=== PATIENT | female | born 1990 | race Caucasian/White ===

== ENCOUNTER → 2017-12-01 08:35 | Outpatient (CLI) | payer MEDICARE, MEDICAID, SELFPAY | PROVIDERS: Visit Provider Specialist | DX: Z91.038 Other insect allergy status (principal) | CPT/HCPCS: 36415; 86003 ==

== ENCOUNTER → 2019-07-25 09:21 | Outpatient (CLI) | payer MEDICARE, MEDICAID, SELFPAY ==
[2019-07-25 12:25] LABS: Absolute Lymphocyte Count 2.15 X10^3/uL (0.83-4.51); Basophil# 0.05 X10^3/uL; Basophil% 0.9 % (0-1); Eosinophil# 0.11 X10^3/uL; Eosinophils% 1.9 % (0-5); Hematocrit 41.6 % (37-47); Hemoglobin 13.4 g/dL (12.0-15.0); Lymphocyte # 2.15 X10^3/ul (4.0); Mean Corp Hgb Conc 32.2 g/dL (32-36); Mean Corpuscular Hgb 27.3 pg (27.0-32.0); Mean Corpuscular Volume 84.9 fL (81-99); Mean Platelet Vol. 10.4 fl (6.2-12.0); Monocyte# 0.38 X10^3/uL; Monocyte% 6.7 % (0-10); NRBC Flagged by Analyzer 0 % (0-5); Neutrophil # 2.95 X10^3/uL (2.7-7.7); Neutrophil % 52.1 % (47-70); Platelet Count 282 K/mm3 (150-450); RBC Distribution Width CV 12.5 % (11.6-14.6); RBC Distribution Width SD 38.5 fl (35.1-43.9); White Blood Count 5.7 K/mm3 (4.4-11.0)
[2019-07-25 13:15] LABS: ALB/GLOB Ratio 1.1 RATIO (0.9-2.4); AST(SGOT) 26 U/L (15-37); Alanine Aminotransfer ALT/SGPT 52 U/L (13-56); Albumin, Serum 4.1 g/dL (3.2-5.0); Alkaline Phosphatase 77 U/L (45-117); Anion Gap 5 (5-15); BUN 11 mg/dL (7-18); BUN/Creat Ratio 13.5 RATIO (10-20); Calcium,Total 9.3 mg/dL (8.5-10.1); Chloride 109 mmol/L (98-107); Creatinine, Serum 0.82 mg/dL (0.55-1.02); EST Glomerular Filtration Rate 87 mL/min (>60); Est Glom Filt Rate - Afr Amer 106 mL/min (>60); Globulin 3.6 g/dL (2.2-4.2); Glucose 78 mg/dL (74-106); Potassium 3.8 mmol/L (3.5-5.1); Protein, Total 7.7 g/dL (6.4-8.2); Sodium Level 138 mmol/L (136-145)
== END ==
PROVIDERS: PCP Family Medicine; Visit Provider Family Medicine
DX: F43.12 Post-traumatic stress disorder, chronic (principal); Q86.0 Fetal alcohol syndrome (dysmorphic); F81.9 Developmental disorder of scholastic skills, unspecified
CPT/HCPCS: 36415; 80053; 84443; 85025

== ENCOUNTER 2021-03-07 11:34 | Emergency (ER) | payer MEDICARE, MEDICAID, SELFPAY ==
[2021-03-07 11:36] VITALS: BP 119/80; PULSE 117; RESP 16; TEMP 36.6; O2SAT 95; BMI 26.9
--- NOTE | 2021-03-07 11:52 | RAD_ITS ---
History: cough EXAMINATION/TECHNIQUE: XR Chest 1 View: Portable COMPARISON: None FINDINGS: LINES/DEVICES: None. LUNGS: Airspace opacification noted within the left upper and right lower lobes consistent with pneumonia. No pneumothorax. MEDIASTINUM AND CARDIOVASCULAR STRUCTURES: Cardiac silhouette not enlarged. Central airways and mediastinal contour are unremarkable. BONES AND SOFT TISSUES: Unremarkable. RAD/Chest 1 View (Portable) IMPRESSION: Bilateral pneumonia. at 1239 Reported and signed by: Mike Morgan MD Electronically Signed: Mike Morgan MD at 12:38 EDT Tel , Service support ,
--- NOTE | 2021-03-07 11:53 | EX.ED.DYSGE1 ---
HPI History of Present Illness Chief Complaint: Cough Informant: patient Onset/Context/Timing Onset: Days Context: Gradual Onset Narrative Narrative: Patient presents with brother secondary to cough and congestion along with sore throat. She had symptoms for the past couple days. He states she has had a fever but T-max has been in the 99 range. No difficulty eating or drinking. She did not receive the Covid vaccine. [facility] Medical History Seasonal allergies Home Medications dexamethasone [Decadron] 6 mg PO DAILY #9 tab 03/07/21 [Rx Last Taken Unknown] Social History Smoking Status: Former smoker ROS ROS ED Constitutional Constitutional ED: Reports fever(s); Denies chills Eyes Eyes: Denies change in vision ENT ENT ED: Reports sore throat and other Details: Congestion Cardiovascular Cardiovascular: Denies chest pain Respiratory/Chest Respiratory/Chest: Reports cough; Denies dyspnea Gastrointestinal Gastrointestinal: Reports nausea and other Details: Dry heaves ; Denies abdominal pain, diarrhea or vomiting Genitourinary Genitourinary ED: Denies dysuria Musculoskeletal Musculoskeletal: Denies back pain Integumentary Denies rash Neurologic Neurologic: Denies headache(s) or weakness Allergic/Immunologic Allergic/Immunologic ED: Denies urticaria EXAM Physical Exam Const Vital Signs: 03/07/21 11:36 03/07/21 12:16 Temperature 97.8 F Temperature Source Temporal Pulse Rate 117 H Respiratory Rate 16 Respiratory Effort Normal Respiratory Pattern Normal Blood Pressure 119/80 Blood Pressure Mean 93 Pulse Ox 95 Oxygen Delivery Method Room Air Room Air Positive well nourished and well developed General Appearance ED: well developed HEENT Reports normocephalic and head/scalp atraumatic HEENT Narrative: Posterior pharynx examination unremarkable. Eyes PERRL and EOMs intact bilaterally Neck supple Chest Wall inspection of chest normal and palpation of chest normal Resp normal respiratory effort and clear to auscultation bilaterally Cardio regular rate and regular rhythm GI normal to inspection, nondistended, normoactive bowel sounds Palpation: soft Extremity normal to inspection Neuro oriented x3 and no sensory deficits noted Sensorium / Orientation: alert Motor Exam: strength 5/5 throughout Psych mental status grossly normal Skin no rashes or lesions noted MDM MDM MDM Narrative Medical decision making narrative: Rapid Covid test and portable chest x-ray obtained. Lab Data Attestation: I reviewed the patient's lab results. Labs: Rapid Covid antigen test positive. Radiography Chest X-Ray - ED: 1 View, Read by ED Physician and Left Infiltrate Diagnostic Testing: Radiology Impression Chest X-Ray 03/07/21 11:52 IMPRESSION: Bilateral pneumonia. at 1239 Reported and signed by: Mike Morgan MD Electronically Signed: Mike Morgan MD at 12:38 EDT Tel , Service support , Treatment and Re-Evaluation Comments:: Test results discussed with patient and brother at bedside. She does have evidence of viral pneumonia with Covid. O2 sat is 97% at this time. Patient be treated with a course of Decadron, first dose given here. I did encourage them to get a pulse ox meter from the local pharmacy and spot check her oxygen levels a couple times a day. Return instructions are provided. Discharge Plan Triage Chief Complaint: Cough ED Provider: Brooke Chu Dx/Rx/DC Orders Clinical Impression: COVID-19 Instructions: Coronavirus Disease 2019 (COVID-19): Overview, Coronavirus Disease 2019 (COVID-19): Caring for Yourself or Others Prescriptions: New dexamethasone [Decadron] 6 mg tablet 6 mg PO DAILY Qty: 9 RF: 0 Primary Care Provider: Cayla Guillaume Referrals: Cayla Guillaume MD [Primary Care Provider] - 10-14 Days if not better Disposition Disposition: Home, Self Care
[2021-03-07 12:16] VITALS: O2SAT 96
[2021-03-07 15:07] VITALS: PULSE 93; RESP 18; TEMP 36.6; O2SAT 100
[2021-03-07] MEDS: dexAMETHasone 4 MG Tablet 6 MG PO (15:07)
== END 2021-03-07 15:09 | disposition home or self-care (01) ==
PROVIDERS: Emergency Provider Emergency Medicine; PCP Family Medicine
DX: U07.1 COVID-19 (principal); Z87.891 Personal history of nicotine dependence
CPT/HCPCS: 71045; 87426; 99283

== ENCOUNTER → 2021-12-09 | Outpatient (CLI) | payer MEDICARE, MEDICAID, SELFPAY ==
[2021-12-14 08:09] LABS: Age Gdln ACOG Testing 30-65 (.)
[2021-12-14 11:24] LABS: HPV APTIMA, High Risk Negative (Negative); HPV Reflexed? YES, CHARGE PATIENT
== END | disposition home or self-care (01) ==
PROVIDERS: PCP Family Medicine; Visit Provider Family Medicine
DX: Z01.419 Encounter for gynecological examination (general) (routine) without abnormal findings (principal); Z12.4 Encounter for screening for malignant neoplasm of cervix
CPT/HCPCS: 87624; 88175; G0145